=== PATIENT | female | born 1975 | race Asian ===

== ENCOUNTER 2023-08-02 17:22 | Emergency (ER) | payer OTHER, MEDICAID ==
[~2023-08-02] VITALS: Ht 162.6 cm; Wt 55.0 kg
[2023-08-02 17:32] VITALS: TEMP 98.1; O2SAT 98
[2023-08-02 19:48] VITALS: BP 114/73; PULSE 68; RESP 14
[2023-08-02] MEDS: HYDROCODONE/ACETAMINOPHEN 5/325MG TABLET PO ONE (19:48)
== END 2023-08-02 19:48 | disposition home or self-care (01) ==
LOC: ER 17:22
DX: S21.031A Puncture wound without foreign body of right breast, initial encounter (principal); X58.XXXA Exposure to other specified factors, initial encounter; Y93.89 Activity, other specified; Y92.89 Other specified places as the place of occurrence of the external cause; Y99.8 Other external cause status
CPT/HCPCS: 99283